=== PATIENT | male | born 1960 | race Caucasian/White ===

== ENCOUNTER 2020-07-05 18:04 | Observation (INO) | payer BC ==
[2020-07-05 18:29] LABS: #Basophils 0.1 thou/uL (0.0-0.2); #Eosinphils 0.1 thou/uL (0.0-0.7); #Lymphocytes 2.1 thou/uL (1.20-3.40); #Monocytes 0.6 thou/uL (0.11-0.59); %Basophils 0.7 % (0.0-1.0); %Eosinophils 1.4 % (0.0-10.0); %Lymphocytes 23.2 % (21.0-51.0); %Monocytes 7.1 % (0.0-10.0); %Neutrophils 67.6 % (42.0-75.0); Hemoglobin 14.6 g/dL (14.0-18.0); Mean Corpuscular HGB CONC 33.7 g/dL (32.0-36.0); Mean Corpuscular Hemoglobin 31.6 pg (27.0-31.0); Mean Corpuscular Volume 93.6 fL (78.0-98.0); Mean Platelet Volume 7.4 fL (7.4-10.4); Platelet Count 260 thou/uL (130-400); RBC Distribution Width 11.3 % (11.5-14.5); Red Blood Cell (RBC) Count 4.62 mill/uL (4.70-6.10); White Blood Cell (WBC) Count 8.9 thou/uL (4.8-10.8)
[2020-07-05 18:37] LABS: INR-International Normal Ratio 0.9; PTT 26.7 sec (22.9-36.1); Prothrombin Time 12.6 sec (12.0-14.7)
[2020-07-05] MEDS ORDERED: Aspirin Chewable 81 MG TAB ONE (18:45)
--- NOTE | 2020-07-05 18:48 | CT ---
CT OF BRAIN PERFORMED WITHOUT CONTRAST ENHANCEMENT: 07/05/20 HISTORY: Stroke symptoms. Patient cannot remember anything but time. The ventricular and cisternal system is within normal limits. There are no signs of intracerebral hem orrhage or extra-axial fluid collections. Mastoid air cells and visualized sinuses appear clear. IMPRESSION: No acute intracranial abnormality. Findings telephoned to Dr. Herrera at 1835 hours. POS: OFF
[2020-07-05 18:55] LABS: ALT (SGPT) 15 U/L (8-55); AST (SGOT) 21 U/L (5-34); Albumin 4.5 g/dL (3.4-4.8); Alkaline Phosphatase 49 U/L (40-110); Anion Gap 15 mmol/L (10-20); BUN (Urea Nitrogen) 17 mg/dL (8.4-25.7); Bilirubin, Total 0.5 mg/dL (0.2-1.2); Calc. Creatinine Clearance 0 mL/min (70-130); Calcium 9.1 mg/dL (7.8-10.44); Carbon Dioxide 23 mmol/L (23-31); Chloride 104 mmol/L (98-107); Estimated GFR-MDRD 68; Globulin 2.7 g/dL (2.4-3.5); Glucose 95 mg/dL (80-115); Potassium 4.1 mmol/L (3.5-5.1); Protein, Total 7.2 g/dL (5.8-8.1); Sodium 138 mmol/L (136-145)
[2020-07-05 18:56] LABS: Acetaminophen Less than 6.0 mcg/mL (10.0-30.0); Alcohol Less than 10 mg/dL (Less than 10); Digoxin Less than 0.15 ng/mL (0.8-2.0); Salicylate Less than 8.0 mg/dL (15.0-30.0)
[2020-07-05 19:33] LABS: Bilirubin Negative (Negative); Blood, Urine Negative (Negative); Clarity Clear (Clear); Glucose, Urine (Dipstick) Normal (Negative); Ketone, Urine Trace mg/dL (Negative); Leukocyte Negative Leu/uL (Negative); Nitrite Negative (Negative); Protein, Urine (Dipstick) Negative (Neg-Trace); Specific Gravity, Urine 1.005 (1.002-1.036); Urobilinogen Normal mg/dL (Less than 2)
--- NOTE | 2020-07-05 19:37 | RAD ---
PORTABLE CHEST: 07/05/20 HISTORY: TIA. Syncope. COMPARISON: None. Heart size and mediastinum are within normal limits. The lungs are clear of infiltrates. No bony find ings. IMPRESSION: No active intrathoracic disease. POS: OFF
[2020-07-05] MEDS ORDERED: Atorvastatin Calcium 40 MG TAB PO SCH (21:00)
[2020-07-05] MEDS: Sodium Chloride 0.9% 1,000 ML IV SCH (22:22)
[2020-07-05 22:44] LABS: Troponin I 0.017 ng/mL (< 0.028)
--- NOTE | 2020-07-05 23:24 | HP ---
CHIEF COMPLAINT: Cough and not remembering what happened. HISTORY OF PRESENT ILLNESS: Mr. Ying is a 60-year-old with past medical history of hyperlipidemia, not on any treatment and presents to the emergency room with a period of confusion. The patient was outside mowing the lawn today when he last remembers talking to his . The noticed that this happened around 2:30, the patient became confused and he did not know what time it was or where he was. The was asking him questions and he continued to repetitively answer unrelated questions. She noticed that he came to sit down and did not remember what he was doing. The patient denies hitting his head at this time. On presentation, there is no focal weakness and the patient is not confused, but he still does not recall what happened. Initial workup in the emergency room including imaging studies and CT of the brain, no acute finding. The patient is being admitted to hospital for further management. PAST MEDICAL HISTORY: Hyperlipidemia. PAST SURGICAL HISTORY: [place] tooth. FAMILY HISTORY: Reviewed and not pertinent. SOCIAL HISTORY: Denies smoking, alcohol drinking, or drug abuse. HOME MEDICATIONS: See home medication reconciliation form for updated medications. ALLERGIES: NO KNOWN ALLERGIES. REVIEW OF SYSTEMS: Review of 14 systems negative except what is mentioned in the history of present illness. PHYSICAL EXAMINATION: VITAL SIGNS: Blood pressure is 140/90, pulse is 68, respiratory rate is 15, temperature 98.7, oxygen saturation is 96% on room air. HEAD AND NECK: Normocephalic, atraumatic. NECK: Supple. CHEST: Fair bilateral air entry. HEART: S1, S2. Regular. ABDOMEN: Soft, nontender. Bowel sounds present. NEUROLOGIC: Awake, alert, oriented x4. No focal findings. He still does not recall what happened. LABORATORY DATA: 1. Imaging studies including chest x-ray, no acute findings. 2. CT of the brain, no acute finding. 3. Urinalysis unremarkable. 4. CBC and electrolytes unremarkable. ASSESSMENT: 1. Brain transient ischemic attack? 2. Hyperlipidemia. 3. Elevated blood pressure. The patient denies any history of hypertension. PLAN: 1. Admit. 2. Tele monitor. 3. Frequent neuro checks. 4. Aspirin. 5. We will get MRI of the brain, MRA brain and neck, 2D echo. 6. Monitor blood pressure. 7. DVT prophylaxis as appropriate. 8. Expected length of stay, 1 midnight, if patient is stable and further workup negative. Job ID: [id number]
[2020-07-05 23:25] VITALS: BMI 27.8
[2020-07-06 01:19] LABS: Troponin I 0.013 ng/mL (< 0.028)
[2020-07-06 05:16] LABS: Cardiac Risk 4.5 (Less than 4.5)
[2020-07-06] MEDS ORDERED: Aspirin 325 mg Enteric Coated Tablet PO SCH (09:00)
[2020-07-06] MEDS ORDERED: FLU VACC QS2020-21(6MOS UP)/PF 60 MCG/0.5 ML SYRINGE IM ONE (09:00)
[2020-07-06] MEDS ORDERED: Enoxaparin Sodium 30 MG/0.3 ML SYRINGE SC SCH (09:00)
[2020-07-06] MEDS: Sodium Chloride 0.9% 1,000 ML IV SCH (09:05)
--- NOTE | 2020-07-06 10:34 | MRI ---
MRI Brain WO Con History: Transient ischemic attack Comparison: CT brain prior day Findings: On the diffusion weighted imaging sequence there are no foci of diffusion restriction. This is confirmed on the ADC map. On the susceptibility weighted imaging sequence no foci of hemorrhage. No midline shift. No mass effect. Clivus marrow signal is maintained. Corpus callosum is normal. Cere bral tonsils terminate at the foramen magnum. Impression: Normal brain MRI for age.
[2020-07-06 16:06] VITALS: BP 160/97; TEMP 98.1
--- NOTE | 2020-07-06 17:43 | DIS ---
DATE OF ADMISSION: 07/05/2020 DATE OF DISCHARGE: 07/06/2020 DISCHARGE DISPOSITION: Home. PRIMARY DISCHARGE DIAGNOSES: 1. Possible TIA, resolved. 2. Period of confusion at home, while at work, resolved. 3. Mild hypertension. 4. Dyslipidemia. PROCEDURES DONE DURING HOSPITALIZATION: CT brain done showed no acute intracranial abnormality. Chest x-ray done showed no active intrathoracic disease. MRI brain showed no diffusion restriction was seen. Echo with 2D Doppler showed an EF of 60% to 65%. H and H of 14 and 43, platelet count 260. Total cholesterol 246, triglycerides 121, LDL 167, HDL 55, TSH 1.61. Troponin x3 negative. BUN 17, creatinine 1.1. Liver enzymes within normal limits. DISCHARGE MEDICATIONS: 1. Aspirin 81 mg p.o. daily. 2. Lipitor 40 mg p.o. at bedtime. 3. Celexa 10 mg p.o. daily. ALLERGIES: NO KNOWN DRUG ALLERGIES. DISCHARGE PLAN: The patient is advised to check blood pressure and pulse twice daily and record for 10 days to follow up with a new primary care physician of his choice in the area. BRIEF COURSE DURING HOSPITALIZATION: The patient initially was brought to emergency room after he could not remember what happened for a period of time while he was moving his lawn. In view of this confusion, the patient was placed under observation on stroke unit. A complete neurologic workup was done, which has been negative for acute CVA. The patient likely has had moderate dehydration, which resolved with fluid resuscitation in the ER. He is fully oriented at present, but still cannot remember what happened yesterday. The patient has dyslipidemia and is intolerant to statins with myalgias. He has been advised to try Lipitor and a prescription for the same has been faxed. He needs to find a primary care physician in the area as he has moved recently to this area. His blood pressure was a bit high on admission, but has since stabilized on no medications here. He is advised to check his blood pressure and pulse twice daily for 10 days to follow up with his primary care physician. Echo showed a good ejection fraction of 60% to 65%. Please note, I have seen and examined the patient on the day of discharge. Prior to discharge, he is ambulating and eating well. Job ID: [id number]
== END 2020-07-06 17:15 | disposition home or self-care (01) ==
LOC: ERS 18:04 → 2SE 20:02
PROVIDERS: ADMIT Internal Medicine; ATTEND Internal Medicine
DX: R41.0 Disorientation, unspecified (principal); I10 Essential (primary) hypertension; E78.5 Hyperlipidemia, unspecified; F32.9 Major depressive disorder, single episode, unspecified; Z79.899 Other long term (current) drug therapy
CPT/HCPCS: 36415; 36416; 70450; 70551; 71045; 80053; 80061; 80162; 80307; 81003; 82550; 83735; 84443; 84484; 85025; 85610; 85730; 93005; 93306; 96360; 96361; 96372; G0378; J1650